=== PATIENT | female | born 1990 ===

== ENCOUNTER 2017-12-19 19:31 | Emergency (ER) | payer SELFPAY ==
[2017-12-19 19:42] VITALS: BP 144/87
[2017-12-19 20:15] LABS: HCG Qualitative,Urine Negative (Negative)
== END 2017-12-19 20:15 | disposition left against medical advice (07) ==
LOC: ED 19:31
DX: R51 Headache (principal); M54.2 Cervicalgia; M25.512 Pain in left shoulder; I10 Essential (primary) hypertension; V48.0XXA Car driver injured in noncollision transport accident in nontraffic accident, initial encounter; Y93.89 Activity, other specified; Y99.8 Other external cause status; Y92.488 Other paved roadways as the place of occurrence of the external cause; Z53.21 Procedure and treatment not carried out due to patient leaving prior to being seen by health care provider
CPT/HCPCS: 81025